=== PATIENT | female | born 1975 | race African-American/Black ===

== ENCOUNTER 2018-03-18 20:42 | Emergency (ER) | payer OTHER ==
[~2018-03-18] VITALS: Ht 170.2 cm; Wt 90.7 kg
[2018-03-18 21:18] LABS: ABSOLUTE NEUTROPHILS 4.4 thou/uL (1.4-8.2); BASOPHILS 0.3 % (0.0-2.0); EOSINOPHILS 1.3 % (0.0-3.0); HEMATOCRIT 41.9 % (37.0-47.0); HEMOGLOBIN 14.1 gm/dL (12.0-15.0); LYMPHOCYTES 36.9 % (24.0-44.0); MCH 29.8 pg (26.0-34.0); MCHC 33.7 g/dL (28.0-37.0); MCV 88.2 fL (80.0-100.0); MONOCYTES 6.9 % (1.0-8.0); PLATELET COUNT 224 thou/uL (150-400); POLYS 54.6 % (36.0-66.0); RBC 4.75 mil/uL (4.20-5.00); RDW 14.6 % (10.5-14.5)
[2018-03-18 21:25] LABS: ANION GAP 6 mmol/L (7-16); BUN 12 mg/dL (7-18); CALCIUM 8.8 mg/dL (8.5-10.1); CHLORIDE 104 mmol/L (98-107); CO2 26 mmol/L (21-32); CREATININE 0.7 mg/dL (0.6-1.0); GLUCOSE 106 mg/dL (74-106); POTASSIUM 3.7 mmol/L (3.5-5.1); SODIUM 136 mmol/L (136-145)
[2018-03-18 21:34] LABS: ALBUMIN 3.9 g/dL (3.4-5.0); LIPASE 99 U/L (73-393); SGOT 17 U/L (15-37); SGPT 18 U/L (30-65); TOTAL BILIRUBIN 0.4 mg/dL (<0.1-1.0); TOTAL PROTEIN 7.4 g/dL (6.4-8.2); TROPONIN-I <0.06 ng/mL (<0.06)
[2018-03-18] MEDS ORDERED: BENADRYL25 MG PO (22:51)
[2018-03-18] MEDS ORDERED: PROTONIX40 MG PO (22:51)
[2018-03-18 23:04] VITALS: BP 156/91
--- NOTE | 2018-03-20 08:29 | EKG ---
[place] [address] [address] [facility] [place] [address] ELECTROCARDIOGRAM REPORT Name: LESLIEAPOLONIARICHARD Room #: [facility] Elizabeth#: [id number] Admission: 03/18/18 Attend Phys: Discharge: 03/18/18 Date of : 75 Report #: [id number] THIS REPORT FOR: //name// [facility] ED Test Date: 2018-03-18 Test Time: 21:28:41 Pat Name: ADONIS NELSON Department: Room: Gender: F Vp Organizational Development: KAVITHA : 1975 Requested By: Thi Arevalo Order Number: [id number] MD: Tyrese Warner Measurements Intervals Vassar Rate: 67 P: 7 MA: 150 QRS: -1 QRSD: 90 T: 28 QT: 440 QTc: 465 Interpretive Statements Sinus rhythm Normal tracing No previous ECG available for comparison Electronically Signed On 03-20-2018 8:29:34 [employer] by Tyrese Warner [email or web address] <ELECTRONICALLY SIGNED> By: Tyrese Warner MD, [facility] 03/20/18 0829 [id number] 27 Tyrese Warner MD, FACC /EPI
== END 2018-03-18 23:05 | disposition home or self-care (01) ==
LOC: ER 20:42
PROVIDERS: Physician Assistant
DX: S10.15XA Superficial foreign body of throat, initial encounter (principal); K21.9 Gastro-esophageal reflux disease without esophagitis; X58.XXXA Exposure to other specified factors, initial encounter; Y93.89 Activity, other specified; Y92.89 Other specified places as the place of occurrence of the external cause; Y99.8 Other external cause status